=== PATIENT | male | born 1970 | race Caucasian/White ===

== ENCOUNTER → 2021-07-22 14:22 | Outpatient (BNVA) | payer OTHER, SELFPAY | PROVIDERS: PCP Nurse Practitioner Family; Referring Provider Nurse Practitioner Family; Visit Provider Orthopaedic Surgery | DX: M54.2 Cervicalgia (principal); Z98.1 Arthrodesis status | CPT/HCPCS: 72050 ==

== ENCOUNTER 2021-11-15 09:09 | Outpatient (CLI) | payer MEDICARE, SELFPAY ==
--- NOTE | 2021-11-15 09:30 | MR_ITS ---
WS: [id number] MRI CERVICAL SPINE NONCONTRAST AND CONTRAST TECHNIQUE: Sagittal T1, T2 and STIR imaging. Axial T2, gradient, and fiesta imaging. Post gadolinium imaging was obtained with fat saturation technique. CLINICAL INFORMATION: CERVICALGIA COMPARISON: CT December 12, 2019 and MRI July 05, 2019 FINDINGS: Straightening of the normal cervical lordosis. Cord signal is normal. No high-grade central canal ellen nosis. Prior postoperative changes anterior cervical fusion with hardware at C4-C5 and C7-T1. Anterio r fusion C4-T1. Interbody bony fusion at C5-C6 and C6-C7 appears solid. C2-C3: Normal. C3-C4: Mild disc osteophytic ridging. Spinal canal and foramen are patent. Mild facet arthropathy. C4-C5: Postoperative changes anterior cervical fusion. Mild LEFT and no significant RIGHT foraminal n arrowing. Mild facet arthropathy. Spinal canal is patent. C5-C6: Mild osteophytic ridging. Spinal canal and foramen are patent. C6-C7: Anterior cervical fusion. Spinal canal and foramen are patent. C7-T1: Mild bilateral bony foraminal narrowing. Spinal canal is patent Visualized brain stem structures: Normal. Prevertebral soft tissues: Normal. MR/MR cervical spine wo/w [id number] IMPRESSION: 1. Straightening of the normal cervical lordosis. Cord signal is normal. 2. Prior postoperative changes C4-T1 anterior cervical fusion with hardware at C4-C5 and C7-T1. Solid appearing bony fusion at C5-C6 and C6-C7. 3. Mild bony foraminal narrowing worse at LEFT C4-C5 4. No remarkable changes compared to the MRI July 05, 2019
== END 2021-11-15 09:10 | disposition home or self-care (01) ==
PROVIDERS: PCP Nurse Practitioner Family; Visit Provider Orthopaedic Surgery
DX: M47.812 Spondylosis without myelopathy or radiculopathy, cervical region; Z98.1 Arthrodesis status
CPT/HCPCS: 72156; 99213; 99214; A9577